=== PATIENT | male | born 1995 | race Caucasian/White ===

== ENCOUNTER 2019-04-10 19:13 | Emergency (ER) | payer MEDICAID ==
[~2019-04-10] VITALS: Ht 175.3 cm; Wt 111.1 kg
[2019-04-10] MEDS ORDERED: ACETAMINOPHEN/CODEINE#3 (300/30mg) TAB PO ONE (21:00)
[2019-04-10] MEDS ORDERED: DexAMETHasone SOD PHOS 10MG/1ML VIAL INJ IM ONE (21:00)
[2019-04-10] MEDS ORDERED: cefTRIAXone SOD 1,000 MG VL IM ONE (21:00)
[2019-04-10 21:07] VITALS: BP 155/93
[2019-04-10] MEDS ORDERED: EPINEPHrine HCL 1 MG/1 ML AMP SC ONE (22:15)
== END 2019-04-10 21:10 | disposition home or self-care (01) ==
LOC: ER 19:22
DX: K04.7 Periapical abscess without sinus (principal); R22.0 Localized swelling, mass and lump, head
CPT/HCPCS: 70486; 96372; 99284; J0171; J0696; J1100